=== PATIENT | female | born 1990 | race Caucasian/White ===

== ENCOUNTER 2021-08-17 18:24 | Emergency (ER) | payer OTHER ==
[~2021-08-17] VITALS: Ht 170.2 cm; Wt 68.0 kg
[2021-08-17 19:35] LABS: URINE BILIRUBIN NEGATIVE (Negative); URINE BLOOD TRACE (Negative); URINE CLARITY CLEAR; URINE COLOR YELLOW; URINE GLUCOSE-RANDOM* NEGATIVE (Negative); URINE KETONES NEGATIVE (Negative); URINE NITRITE-REFLEX NEGATIVE (Negative); URINE PROTEIN (DIPSTICK) NEGATIVE (Negative); URINE SPECIFIC GRAVITY 1.025 (1.005-1.035); URINE UROBILINOGEN 0.2 E.U./dl (0.2-1.0)
[2021-08-17 19:36] LABS: URINE LEUKOCYTES-REFLEX 1+ (Negative)
[2021-08-17 19:54] LABS: BACTERIA-REFLEX 1-9 Few /HPF (None Seen); CASTS None Seen /LPF (None Seen); CRYSTALS None Seen /LPF (None Seen); SQUAMOUS 4-10 Moderate /LPF (0-3); URINE RBC 1-2 Rare /HPF (NONE SEEN); URINE WBC-REFLEX 6-15 Few /HPF (0-5)
[2021-08-17] MEDS ORDERED: IBU600 MG PO (20:28)
[2021-08-17 20:47] VITALS: BP 120/76
== END 2021-08-17 20:47 | disposition home or self-care (01) ==
LOC: ER 18:24
PROVIDERS: Emergency Medicine
DX: G57.12 Meralgia paresthetica, left lower limb (principal); R20.2 Paresthesia of skin; F12.90 Cannabis use, unspecified, uncomplicated; F17.200 Nicotine dependence, unspecified, uncomplicated; Z90.89 Acquired absence of other organs

== ENCOUNTER 2021-10-17 13:32 | Emergency (ER) | payer OTHER ==
[~2021-10-17] VITALS: Ht 172.7 cm; Wt 72.6 kg
[~2021-10-17 13:32] MED LIST: IBU600 MG PO
[2021-10-17 13:58] LABS: URINE BILIRUBIN NEGATIVE (Negative); URINE BLOOD TRACE (Negative); URINE CLARITY CLEAR; URINE COLOR YELLOW; URINE GLUCOSE-RANDOM* NEGATIVE (Negative); URINE KETONES NEGATIVE (Negative); URINE NITRITE-REFLEX NEGATIVE (Negative); URINE PROTEIN (DIPSTICK) NEGATIVE (Negative); URINE SPECIFIC GRAVITY 1.015 (1.005-1.035); URINE UROBILINOGEN 0.2 E.U./dl (0.2-1.0)
[2021-10-17 14:01] LABS: URINE LEUKOCYTES-REFLEX 3+ (Negative)
[2021-10-17 14:03] LABS: ABSOLUTE NEUTROPHILS 4.6 thou/uL (1.4-8.2); EOSINOPHILS 1.4 % (0.0-3.0); HEMATOCRIT 39.6 % (37.0-47.0); HEMOGLOBIN 13.3 gm/dL (12.0-15.0); LYMPHOCYTES 30.2 % (24.0-44.0); MCH 31.2 pg (26.0-34.0); MCHC 33.7 g/dL (28.0-37.0); MCV 92.8 fL (80.0-100.0); MONOCYTES 8.5 % (1.0-8.0); PLATELET COUNT 338 thou/uL (150-400); POLYS 58.9 % (36.0-66.0); RBC 4.27 mil/uL (4.20-5.00); RDW 14.3 % (10.5-14.5); WBC 7.9 thou/uL (4.0-11.0)
[2021-10-17 14:06] LABS: CALCIUM 8.7 mg/dL (8.5-10.1); CREATININE 0.6 mg/dL (0.6-1.0); POTASSIUM 3.7 mmol/L (3.5-5.1)
[2021-10-17 14:12] LABS: ALBUMIN 3.8 g/dL (3.4-5.0); TOTAL BILIRUBIN 0.4 mg/dL (0.2-1.0); TOTAL PROTEIN 7.4 g/dL (6.4-8.2)
[2021-10-17 14:20] LABS: SQUAMOUS >10 Many /LPF (0-3); URINE RBC 3-10 Few /HPF (NONE SEEN)
[2021-10-17 14:23] LABS: URINE WBC-REFLEX >25 Many /HPF (0-5)
[2021-10-17 14:24] LABS: BACTERIA-REFLEX 1-9 Few /HPF (None Seen)
[2021-10-17 14:27] LABS: CASTS None Seen /LPF (None Seen)
[2021-10-17 14:28] LABS: CRYSTALS None Seen /LPF (None Seen)
[2021-10-17] MEDS ORDERED: BACTRIM DS TAB1 EACH PO (15:12)
[2021-10-17] MEDS ORDERED: FLAGYL375 MG PO (15:12)
[2021-10-17 15:24] VITALS: BP 129/78
== END 2021-10-17 15:25 | disposition home or self-care (01) ==
LOC: ER 13:32
PROVIDERS: Nurse Practitioner
DX: N76.0 Acute vaginitis (principal); B96.89 Other specified bacterial agents as the cause of diseases classified elsewhere; N39.0 Urinary tract infection, site not specified; N73.8 Other specified female pelvic inflammatory diseases; F12.90 Cannabis use, unspecified, uncomplicated; Z90.89 Acquired absence of other organs; Z79.899 Other long term (current) drug therapy